=== PATIENT | male | born 1975 | race Caucasian/White ===

== ENCOUNTER 2022-10-17 21:47 | Emergency (ER) | payer BC, SELFPAY ==
[2022-10-17 21:48] VITALS: BP 149/113; PULSE 81; RESP 16; TEMP 36.6; O2SAT 96; BMI 28.9
--- NOTE | 2022-10-17 22:38 | RAD_ITS ---
STUDY: X-RAY CHEST REASON FOR EXAM: Male, 47 years old. Chest pain TECHNIQUE: Single AP portable view of the chest. COMPARISON: None. FINDINGS: The lungs are clear and expanded. There is no demonstrated pleural abnormality. Normal size heart. Normal mediastinum and eugenia. Normal visualized pulmonary arteries. Normal visualized aortic arch and descending thoracic aorta. Normal visualized thoracic spine. Normal visualized ribs, clavicles, and shoulders. There is no demonstrated abnormality of the visualized soft tissue structures of the upper abdomen. RAD/Chest 1 View (Portable) IMPRESSION: Normal x-ray examination of the chest. Electronically Signed: Lo Tsai MD at 23:16 EST Reading Location ID and State: [facility] / [place] Tel , Service support ,
[2022-10-17 22:40] VITALS: PULSE 67; RESP 19; O2SAT 95
[2022-10-17] MEDS: Aspirin 325 MG Tablet PO (22:47)
[2022-10-17 22:50] LABS: Absolute Lymphocyte Count 2.09 X10^3/uL (0.83-4.51); Absolute Neutrophil Count 3.1 X10^3/uL (2.0-7.7); Basophil# 0.03 X10^3/uL; Basophil% 0.5 % (0-1); Eosinophil# 0.32 X10^3/uL; Eosinophils% 5.3 % (0-5); Hematocrit 43.3 % (40-54); Hemoglobin 14.8 g/dL (13.0-16.5); Lymphocyte # 2.09 X10^3/ul (0.83-4.51); Lymphocyte % 34.8 % (19-41); Mean Corp Hgb Conc 34.2 g/dL (32-36); Mean Corpuscular Hgb 31.7 pg (27.0-32.0); Mean Corpuscular Volume 92.7 fL (80-94); Mean Platelet Vol. 10.1 fl (6.2-12.0); Monocyte# 0.44 X10^3/uL; Monocyte% 7.3 % (0-10); NRBC Flagged by Analyzer 0 % (0-5); Neutrophil % 51.8 % (47-70); Platelet Count 179 K/mm3 (150-450); RBC Distribution Width CV 12.3 % (11.6-14.6); RBC Distribution Width SD 42.3 fl (35.1-43.9); Red Blood Count 4.67 M/mm3 (4.6-6.2)
[2022-10-17 23:09] LABS: Anion Gap 7 (5-15); BUN 19 mg/dL (7-18); BUN/Creat Ratio 20.7 RATIO (10-20); Calcium,Total 9.1 mg/dL (8.5-10.1); Chloride 105 mmol/L (98-107); Creatinine, Serum 0.92 mg/dL (0.70-1.30); D-Dimer Quantitative (DVT/PE) < 0.27 FEU/ug/m (0.27-0.49); EST Glomerular Filtration Rate 95 mL/min (>60); Est Glom Filt Rate - Afr Amer 114 mL/min (>60); Glucose 105 mg/dL (74-106); Potassium 3.9 mmol/L (3.5-5.1); Sodium Level 136 mmol/L (136-145); Troponin-I HS 7 pg/mL (3.0-78.0)
--- NOTE | 2022-10-17 23:31 | EX.ED.DYSGE1 ---
HPI History of Present Illness Chief Complaint: Chest Pain Narrative Narrative: Patient is a 47-year-old male who reports no significant past medical history. He states that yesterday for about 20 minutes he noticed a left-sided chest discomfort without radiation. He states that today he was at work when he developed the same discomfort that lasted 1 to 2 hours. He states that with this there was no nausea vomiting diaphoresis or shortness of breath. He states after returning home the pain completely resolved however he he reports that his father had an IN at age 65 and his mother has diabetes and multiple stents and he was concerned this could be cardiac in nature so therefore he comes in for evaluation. He denies any recent travel surgery or history of DVT/PE. He does admit to recent excessive activity at work with moving heavy objects [facility] Medical History (Updated 10/17/22 @ 23:[address] Vijay Adams, ) Back problem Bone fracture GERD (gastroesophageal reflux disease) Hives Ruptured, tendon, Achilles Home Medications NK 03/15/22 [History Last Taken Unknown] Allergy/AdvReac Type Severity Reaction Status Date / Time Penicillins Allergy Unknown Verified 10/17/22 21:49 Family History (Updated 03/15/22 @ 15:39 by Dustin Judd) Other Alcoholism Anxiety Colon cancer Diabetes Heart disease High cholesterol Hypertension Myocardial infarction Social History (Updated 03/15/22 @ 15:38 by Dustin Judd) Smoking Status: Never smoker alcohol intake: current substance use type: does not use what type of physical activity do you participate in: none ROS ROS ED Constitutional Constitutional ED: Denies chills or fever(s) ENT ENT ED: Denies sore throat Cardiovascular Cardiovascular: Reports chest pain; Denies palpitations or racing heartbeat Respiratory/Chest Respiratory/Chest: Denies cough or dyspnea Gastrointestinal Gastrointestinal: Denies abdominal pain, diarrhea, nausea or vomiting Genitourinary Genitourinary ED: Denies dysuria Musculoskeletal Musculoskeletal: Denies myalgias Integumentary Denies rash Neurologic Neurologic: Denies headache(s) Hematologic/Lymphatic Hematologic/Lymphatic: Denies easy bleeding or easy bruising EXAM Physical Exam Const Vital Signs: 10/17/22 21:48 10/17/22 22:40 10/17/22 23:43 Temperature 97.8 F Temperature Source Temporal Pulse Rate 81 67 74 Respiratory Rate 16 19 H 21 H Blood Pressure 149/113 H Blood Pressure Mean 125 Pulse Ox 96 95 95 Oxygen Delivery Method Room Air Room Air Positive well nourished and well developed General Appearance ED: well developed Eyes PERRL and EOMs intact bilaterally Neck supple and no JVD Neck Narrative: Carotid pulses are plus 2 out of 4 bilaterally Chest Wall Chest Narrative: No bony deformity or crepitance of the chest wall no overlying soft tissue changes to suggest trauma or infection Resp normal respiratory effort and clear to auscultation bilaterally Cardio regular rate and regular rhythm Rate: other Other Details: Radial pulses are plus 2 out of 4 bilaterally are equal and symmetric GI normal to inspection, nondistended, normoactive bowel sounds, non-tender, non-distended and no masses GI Narrative: No voluntary guarding or rigidity no pulsatile mass or fluid wave Auscultation: normoactive bowel sounds Palpation: soft Extremity normal to inspection Extremity Narrative: No asymmetric edema no pitting edema negative Homans' sign bilaterally Neuro oriented x3 and CN's II-XII intact bilaterally Sensorium / Orientation: alert Psych mental status grossly normal Skin no rashes or lesions noted MDM MDM MDM Narrative Medical decision making narrative: Patient presented to the ER hypertensive but otherwise with stable vitals. He reported a left-sided chest discomfort without radiation that did not cause nausea vomiting diaphoresis or shortness of breath and had spontaneous resolved after 1 to 2 hours and has not returned since. He is low risk for cardiovascular disease and DVT/PE but as he has a family history of heart attack at age 65 and father and mother with multiple stents a basic cardiac work-up was obtained. Blood work revealed a normal D-dimer as well as a troponin of only 7. There is no signs of kidney disease or electrolyte derangement. Chest x-ray reveals no acute lung pathology. At this time he does not have any active pain going against dissection as well his D-dimer is negative going against pulmonary embolus and his chest x-ray reveals no obvious pneumothorax or infiltrate as a cause of his symptoms. We discussed obtaining a delta troponin but patient has been pain-free for multiple hours and as he is low risk for cardiovascular event and his initial troponin is normal he does not want any further work-up done in the ER. At this time as his heart score is low and he had spontaneous improvement of his chest pain with negative work-up I do feel this is most likely related to musculoskeletal issue as he reports excessive activity at work over the last 1 to 2 days when the symptoms began. Patient reports he feels comfortable going home at this time with his negative work-up and will return to the ER follow-up with family doctor if he has any further concerns. History & Record Review Discussion w/independent historian: Patient and Family Lab Data Attestation: I reviewed the patient's lab results. Labs: Laboratory Results - last 24 hr 10/17/22 10/17/22 10/17/22 22:40 22:40 22:40 WBC 6.0 RBC 4.67 Hgb 14.8 Hct 43.3 MCV 92.7 MCH 31.7 MCHC 34.2 RDW Std Deviation 42.3 RDW Coeff of Hortensia 12.3 Plt Count 179 MPV 10.1 Immature Gran % (Auto) 0.300 Neut % (Auto) 51.8 Lymph % (Auto) 34.8 Ingham % (Auto) 7.3 Eos % (Auto) 5.3 H Baso % (Auto) 0.5 Absolute Neuts (auto) 3.1 Absolute Lymphs (auto) 2.09 Nucleated RBC % 0 D-Dimer Quant (PE/DVT) < 0.27 L Sodium 136 Potassium 3.9 Chloride 105 Carbon Dioxide 24.0 Anion Gap 7 BUN 19 H Creatinine 0.92 Estim Creat Clear Calc 94.80 Est GFR (MDRD) Af Amer 114 Est GFR (MDRD) Non-Af 95 BUN/Creatinine Ratio 20.7 H Glucose 105 Calcium 9.1 Troponin I High Sens 7 Radiography Diagnostic Testing: Clinical Impression(s) from Imaging Studies Chest X-Ray 10/17/22 22:38 IMPRESSION: Normal x-ray examination of the chest. Electronically Signed: Lo Tsai MD at 23:16 EST , Chest x-ray as interpreted by the emergency medicine physician reveals no acute infiltrate pneumothorax or pleural effusion Discharge Plan Triage Chief Complaint: Chest Pain ED Provider: Vijay Adams Dx/Rx/DC Orders Clinical Impression: Nonspecific chest pain Instructions: ED Chest Pain, Uncertain Cause Prescriptions: No Action NK Primary Care Provider: Nicole Castellanos Referrals: Nicole Castellanos MD [Primary Care Provider] - Activity Restrictions/Additional Instructions: Your work-up today does not indicate that your chest discomfort is from a cardiac cause. Follow-up with your family doctor to discuss further outpatient testing and return to the ER should you have any further concerns Disposition Disposition: Home, Self Care Discharge Date/Time: 10/17/22 23:44
[2022-10-17 23:43] VITALS: PULSE 74; RESP 21; O2SAT 95
== END 2022-10-17 23:44 | disposition home or self-care (01) ==
PROVIDERS: Emergency Provider Emergency Medicine; Visit Provider Emergency Medicine
DX: R07.9 Chest pain, unspecified (principal)
CPT/HCPCS: 71045; 80048; 84484; 85025; 85379; 93005; 99285; A4216

== ENCOUNTER → 2023-10-30 | Outpatient (CLI) | payer BC, SELFPAY ==
--- NOTE | 2023-10-30 12:51 | CT_ITS ---
STUDY: CT ABDOMEN AND PELVIS WITH CONTRAST REASON FOR EXAM: Male, 48 years old. LLQ pain, suspect acute diverticulitis RADIATION DOSAGE (If Supplied By Facility): CTDIvol = ( 12.35 ) mGy, DLP = ( 815.43 ) mGycm TECHNIQUE: Transaxial images were obtained from the dome of the diaphragm to the symphysis pubis with oral contrast. Oral and amp; IV Gastrografin and amp; 100mL Isovue-300 was administered. Sagittal and coronal images were reconstructed. Individualized dose optimization techniques were used for this CT. COMPARISON: None. FINDINGS: Minimal degree of dependent bibasilar atelectasis. Coronary artery calcification. There is decreased attenuation of the liver consistent with steatosis. Normal gallbladder and extrahepatic biliary system. Normal spleen. Normal pancreas. Normal bilateral adrenal glands. Normal right kidney. Normal left kidney. Normal visualized stomach. Normal small intestine. There is diverticulosis, with thickening of the colon wall, and pericolonic inflammation changes consistent with acute diverticulitis. The appendix is visualized and appears normal. Normal abdominal aorta. Normal inferior vena cava. Normal retroperitoneum. Normal urinary bladder. Small bilateral hernias containing fat. Mild degree of disc space narrowing at the L5-S1 level. CT/Abdomen/Pelvis WITH Contrast IMPRESSION: Fatty infiltration of the liver. Findings in keeping with a noncomplicated acute sigmoid diverticulitis. There is diffuse sigmoid wall thickening. Electronically Signed: Homero Peguero MD at 15:32 EDT ,
[2023-10-30 13:33] LABS: Absolute Lymphocyte Count 1.18 X10^3/uL (0.83-4.51); Absolute Neutrophil Count 7.7 X10^3/uL (2.0-7.7); Basophil# 0.02 X10^3/uL; Basophil% 0.2 % (0-1); Eosinophils% 2.1 % (0-5); Hematocrit 43.8 % (40-54); Hemoglobin 14.6 g/dL (13.0-16.5); Lymphocyte # 1.18 X10^3/ul (0.83-4.51); Lymphocyte % 12.2 % (19-41); Mean Corp Hgb Conc 33.3 g/dL (32-36); Mean Platelet Vol. 10.6 fl (6.2-12.0); Monocyte% 6.2 % (0-10); NRBC Flagged by Analyzer 0 % (0-5); Neutrophil # 7.65 X10^3/uL (2.7-7.7); Platelet Count 179 K/mm3 (150-450); RBC Distribution Width CV 12.6 % (11.6-14.6); RBC Distribution Width SD 42.9 fl (35.1-43.9); Red Blood Count 4.71 M/mm3 (4.6-6.2); White Blood Count 9.7 K/mm3 (4.4-11.0)
[2023-10-30 13:41] LABS: Erythrocyte Sedimentation Rate 3 mm/hr (0-20)
[2023-10-30 13:55] LABS: ALB/GLOB Ratio 1.1 RATIO (0.9-2.4); AST(SGOT) 26 U/L (15-37); Alanine Aminotransfer ALT/SGPT 48 U/L (16-61); Albumin, Serum 4.1 g/dL (3.2-5.0); Alkaline Phosphatase 61 U/L (45-117); Anion Gap 4 (5-15); BUN 11 mg/dL (7-18); BUN/Creat Ratio 11.2 RATIO (10-20); Calcium,Total 9.4 mg/dL (8.5-10.1); Chloride 103 mmol/L (98-107); Creatinine, Serum 0.98 mg/dL (0.70-1.30); EST Glomerular Filtration Rate 87 mL/min (>60); Est Glom Filt Rate - Afr Amer 106 mL/min (>60); Globulin 3.6 g/dL (2.2-4.2); Glucose 98 mg/dL (74-106); Protein, Total 7.7 g/dL (6.4-8.2); Sodium Level 135 mmol/L (136-145)
== END | disposition home or self-care (01) ==
PROVIDERS: PCP Internal Medicine; Referring Provider Internal Medicine; Visit Provider Internal Medicine
DX: R10.32 Left lower quadrant pain (principal); R39.89 Other symptoms and signs involving the genitourinary system
CPT/HCPCS: 36415; 74177; 80053; 85025; 85652; 86140; 87086; Q9967